=== PATIENT | male | born 1980 | race Caucasian/White ===

== ENCOUNTER 2021-08-13 10:29 | Emergency (ER) | payer BC ==
[2021-08-13 10:34] VITALS: BP 151/86; PULSE 75; RESP 18; TEMP 97.7
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
== END 2021-08-13 12:48 | disposition home or self-care (01) ==
LOC: EC 10:29
DX: S06.0X0A Concussion without loss of consciousness, initial encounter (principal); F17.209 Nicotine dependence, unspecified, with unspecified nicotine-induced disorders; Y04.8XXA Assault by other bodily force, initial encounter
CPT/HCPCS: 70450; 99283

== ENCOUNTER 2022-10-31 18:30 | Emergency (ER) | payer BC, OTHER ==
[2022-10-31 18:58] VITALS: TEMP 98
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
[2022-10-31 20:43] VITALS: BP 123/84; PULSE 30; RESP 8
== END 2022-10-31 20:43 | disposition home or self-care (01) ==
LOC: EC 18:30
DX: S20.211A Contusion of right front wall of thorax, initial encounter (principal); M25.551 Pain in right hip; F17.290 Nicotine dependence, other tobacco product, uncomplicated; V89.2XXA Person injured in unspecified motor-vehicle accident, traffic, initial encounter; Y92.410 Unspecified street and highway as the place of occurrence of the external cause
CPT/HCPCS: 70450; 71250; 72125; 73502; 74150; 99284